=== PATIENT | male | born 1975 | race Caucasian/White ===

== ENCOUNTER 2017-03-21 18:32 | Emergency (ER) | payer BC, OTHER ==
[2017-03-21 18:43] VITALS: BP 143/85
[2017-03-21] MEDS ORDERED: Tetan/Diph/Pertus SYR(Tdap)* 0.5 ML SYR(BOOSTRIX) use SYR IM ONE (18:48)
--- NOTE | 2017-03-21 19:09 | UC ---
Laceration HPI - HPI Summary HPI Summary: Pt presents with puncture wound to left lower medial thigh about 1 hour prior to his arrival to our clinic. He tells me that he was using a utility knife to cut wire, when the knife slipped and punctured this area. He was able to stop the minor bleeding with direct pressure and applied a bandaid. He is unsure when his last tetanus was. - History Of Current Complaint Chief Complaint: UCWounds Stated Complaint: PUCTURE WOUND ON LEG Time Seen by Provider: 03/21/17 19:09 Hx Obtained From: Patient Laceration Location: Thigh Mechanism Of Injury: Sharp Trauma Onset/Duration: Sudden Onset Severity: Mild Pain Intensity: 2 Pain Scale Used: 0-10 Numeric - Allergies/Home Medications Allergies/Adverse Reactions: Allergies Allergy/AdvReac Type Severity Reaction Status Date / Time No Known Allergies Allergy Verified 03/21/17 18:43 Home Medications: Home Medications NK [No Home Medications Reported] 03/21/17 [History Confirmed 03/21/17] PMH/Surg Hx/FS Hx/Imm Hx Previously Healthy: Yes - Surgical History Surgical History: None - Family History Known Family History: Positive: None - Social History Occupation: Employed Full-time Lives: With Family Alcohol Use: None Substance Use Type: None Smoking Status (MU): Never Smoked Tobacco - Immunization History Most Recent Tetanus Shot: Needs Review of Systems Constitutional: Negative Skin: Other - 5mm puncture wound to left leg Respiratory: Negative Cardiovascular: Negative Neurovascular: Negative Musculoskeletal: Negative All Other Systems Reviewed And Are Negative: Yes Physical Exam Triage Information Reviewed: Yes Appearance: Well-Appearing, No Pain Distress, Well-Nourished Vital Signs: Initial Vital Signs Temp 97.7 F 03/21/17 18:35 Pulse 86 03/21/17 18:35 Resp 20 03/21/17 18:35 BP 143/85 03/21/17 18:35 Pulse Ox 98 03/21/17 18:35 Vital Signs Reviewed: Yes Respiratory: Positive: Lungs clear, Normal breath sounds, No respiratory distress Cardiovascular: Positive: RRR, No Murmur, Pulses Normal Musculoskeletal: Positive: Strength Intact - Left knee, ROM Intact - Left knee, No Edema Neurological: Positive: Alert, Other: - Sensations intact left LE Psychological: Positive: Age Appropriate Behavior Skin: Positive: Other - ~5mm superficial linear laceration to the left medial distal thigh, just above the medial knee. No FBs appreciated. No drainage, streaking, or bleeding. Laceration Repair - Laceration Repair 1 Description: Linear Laceration Size After Repair: Length (cm) - 0.5 Modified For Repair: No Irrigation With Pressure Irrigation Device: Yes Closure Material: Skin Adhesive Laceration Course/Dx - Course/Dx Course Of Treatment: The wound was pressure irrigated with 100mL of NS. The wound was explored and found to be superficial and less than 2mm in depth. Acceptable closer with wound edge approximation and dermabond was obtained. The area was then bandaged with telfa and tegaderm. - Differential Dx - Laceration/Wound Provider Diagnoses: 5mm laceration to left leg Discharge - Discharge Plan Condition: Stable Disposition: HOME Patient Education Materials: Puncture Wound (DC) Referrals: Arelis Sanon MD [Primary Care Provider] - Additional Instructions: If you develop a fever, shortness of breath, chest pain, new or worsening symptoms - please call your PCP or go to the ED. Your blood pressure was high at todays visit. Please see your primary provider within 4 weeks for recheck and re-evaluation. 1) Please keep the area bandaged, clean, dry, and intact for the next 24- 48hours. 2) If you develop a fever, colored or thick discharge, increased pain or swelling - please call your PCP or go to the ED.
== END 2017-03-21 19:47 | disposition home or self-care (01) ==
LOC: UCEAST 18:32
DX: S71.112A Laceration without foreign body, left thigh, initial encounter (principal); W26.0XXA Contact with knife, initial encounter; Y93.89 Activity, other specified; Y92.9 Unspecified place or not applicable; Z23 Encounter for immunization
CPT/HCPCS: 90471; 90715; 99212; G0463